=== PATIENT | male | born 1980 | race Caucasian/White ===

== ENCOUNTER 2018-10-02 14:53 | Emergency (ER) | payer OTHER, SELFPAY ==
[2018-10-02 15:03] VITALS: BP 117/76; PULSE 79; RESP 18; TEMP 37.2; O2SAT 98; BMI 24.3
--- NOTE | 2018-10-02 15:43 | PC.NURSE ---
1535 Droplet precautions initiated for strep
--- NOTE | 2018-10-02 15:47 | ED_ITS ---
HPI - URI/Sore Throat <DAFNE Bal - Last Filed: 10/02/18 16:23> General Chief Complaint: Upper Respiratory Symptoms Stated Complaint: Tonsils are swollen Time Seen by Provider: 10/02/18 15:28 Source: patient Mode of arrival: ambulatory Limitations: no limitations History of Present Illness HPI Narrative: The patient is a 37-year-old male current smoker with history of dental infection who presents with a chief complaint of a sore throat for 2 weeks. He states he had fever initially, but no longer. He states he has generalized nausea. Denies any vomiting or diarrhea. Denies abdominal pain. States he has some ear pain. Has not been taking anything consistently for the pain. He states he did take a 10 day course of amoxicillin for this sore throat. He does not know the dosage. He states he had a 2nd prescription for dental infection, so he took that. Related Data Previous Rx's Medication Instructions Recorded azithromycin See Rx Instructions .ROUTE 10/02/18 .COMPLEX #6 tab Allergies Allergy/AdvReac Type Severity Reaction Status Date / Time NSAIDS (Non-Steroidal Allergy Verified 10/02/18 15:03 Anti-Inflamma Review of Systems <DAFNE Bal - Last Filed: 10/02/18 16:23> Review of Systems GENERAL: See HPI HEENT: See HPI RESPIRATORY: Denies dyspnea, cough, wheezing, hemoptysis, sputum. CARDIOVASCULAR: Denies chest pain, palpitations, orthopnea, edema, GASTROINTESTINAL: Denies nausea, vomiting, abdominal pain, diarrhea, constipation, melena. : Denies dysuria, frequency, incontinence, hematuria, urinary retention. MUSCULOSKELETAL: denies weakness, joint pain, or bony pain SKIN: Denies rash, skin lesions, or other NEUROLOGIC: Denies weakness, headache, numbness, change in speech, confusion, seizures, incoordination. PSYCHIATRIC: No concerning psychosocial issues. 12 point review of systems is negative except for those stated above PFSH <DAFNE Bal - Last Filed: 10/02/18 16:23> Medical History (Updated 10/02/18 @ 16:21 by DAFNE Bal) Dental infection (Acute) Social History Smoking Status: Current every day smoker Social History Smoking Status: Current every day smoker Exam <DAFNE Bal - Last Filed: 10/02/18 16:23> Narrative Exam Narrative: GENERAL: This is a well-nourished, well-developed patient, lying on stretcher HEAD: Atraumatic. Normocephalic. No temporal or scalp tenderness. EYES: Pupils equal round and reactive. Extraocular motions intact. No scleral icterus. No injection or drainage. ENT: Nose without bleeding, purulent drainage or septal hematoma. Throat with erythema, without tonsillar hypertrophy or exudate. Uvula midline. Airway patent. bilateral TMs pearly willard. NECK: Trachea midline. bilateral anterior lymphadenopathy. Supple, nontender, no meningeal signs. CARDIOVASCULAR: Regular rate and rhythm without murmurs, gallops, or rubs. RESPIRATORY: Clear to auscultation. Breath sounds equal bilaterally. No wheezes, rales, or rhonchi. No cough. No increased respiratory effort. GASTROINTESTINAL: Abdomen soft, non-tender, nondistended. No hepato- splenomegaly, or palpable masses. No guarding. EXTREMITIES: No clubbing, cyanosis, or edema. No joint tenderness, effusion, or edema noted. BACK: Nontender without deformity or crepitance. No flank tenderness. NEURO: AOx3. SKIN: No rash or erythema. Initial Vital Signs Initial Vital Signs: Vital Signs Temperature 98.9 F 10/02/18 15:03 Pulse Rate 79 10/02/18 15:03 Respiratory Rate 18 10/02/18 15:03 Blood Pressure 117/76 10/02/18 15:03 Pulse Oximetry 98 10/02/18 15:03 <Shreyas Rice DO - Last Filed: 10/03/18 08:48> Initial Vital Signs Initial Vital Signs: Vital Signs Temperature 98.9 F 10/02/18 15:03 Pulse Rate 79 10/02/18 15:03 Respiratory Rate 18 10/02/18 15:03 Blood Pressure 117/76 10/02/18 15:03 Pulse Oximetry 98 10/02/18 15:03 Course <DAFNE Bal - Last Filed: 10/02/18 16:23> Vital Signs - 8 hr 10/02/18 15:03 Temperature 98.9 F Pulse Rate 79 Respiratory Rate 18 Blood Pressure 117/76 Pulse Oximetry 98 <DO Bill Cavazos Last Filed: 10/03/18 08:48> Vital Signs - 8 hr 10/02/18 15:03 Temperature 98.9 F Pulse Rate 79 Respiratory Rate 18 Blood Pressure 117/76 Pulse Oximetry 98 MDM - URI/Sore Throat <DAFNE Bal - Last Filed: 10/02/18 16:23> Lab Data Point of Care Testing Rapid Strep A Positive MDM Narrative Medical decision making narrative: The patient is a 37-year-old male who presents with a sore throat. He has strep positive. Given that he recently treated himself with an unknown dose of amoxicillin, I do not want a repeat amoxicillin. I gave him a prescription of azithromycin. Encouraged follow-up with his primary care provider. Patient is nontoxic, hemodynamically stable, and has no questions or concerns about discharge. Discussed return precautions worsening or acute concerns. <Shreyas Rice DO - Last Filed: 10/03/18 08:48> Lab Data Point of Care Testing Rapid Strep A Positive Discharge Plan Departure Patient Disposition: Home Clinical Impression: Strep throat Discharge Date/Time: 10/02/18 16:28 Interventions: ED Discharge Assessment Last Done: 10/02/18 16:28 Instructions: DI for Strep Throat Activity Restrictions/Additional Instructions: You tested positive for strep throat today. I will treat with antibiotics. In the future, do not self administer antibiotics for throat pain. please follow up with a healthcare provider see you can have testing. Please follow up with primary care provider. Please come back to emergency department for any acute concerns. Prescriptions: New azithromycin 250 mg tablet See Rx Instructions .ROUTE .COMPLEX Qty: 6 RF: 0 <Shreyas Rice DO - Last Filed: 10/03/18 08:48> Cosign ED Attending [place] Attestation: I was immediately available in the department for consultation. Documentation has been reviewed. I agree with assessment and plan.
[2018-10-02 16:28] VITALS: BP 116/75; PULSE 81; RESP 16; O2SAT 98
== END 2018-10-02 16:28 | disposition home or self-care (01) ==
PROVIDERS: Emergency Provider Nurse Practitioner Family
DX: J02.0 Streptococcal pharyngitis (principal)
CPT/HCPCS: 87880; 99282; 99283

== ENCOUNTER 2018-10-29 09:47 | Emergency (ER) | payer OTHER, SELFPAY ==
[2018-10-29 09:52] VITALS: BP 133/90; PULSE 76; RESP 16; TEMP 36.4; O2SAT 100; BMI 22.1
--- NOTE | 2018-10-29 10:20 | ED.UPPEXIN ---
HPI - Extremity Injury (Upper) General Chief Complaint: Extremity Injury, Upper Stated Complaint: Right arm is swollen. Time Seen by Provider: 10/29/18 10:07 Source: patient Mode of arrival: ambulatory Limitations: no limitations History of Present Illness HPI narrative: This is a 37-year-old male comes to the emergency department with complaint of pain and discomfort in his right upper extremity. He states in the shoulder kind of elbow region. He states about 2 weeks ago he was working on a car his arm was but through the wheel well and the car fell off the [place] and fell on to his arm on each side of his elbow. He states the tire was flat so it sort of landed on his arm. He states he has had pain since. Was sort of improving but has been getting worse again. He also noticed some bumps on his fingers and swelling of the fingers on the right hand. Patient has not had any fevers. He has not have any numbness or tingling. Cold does make his hand much more pain he does help. He states that movement is uncomfortable. Patient does not have similar symptoms on the other side or in his other extremities. Patient does work on a farm, he does a significant amount of manual labor. He states he also had a dog bite about 2 days ago on his right leg. He states his tetanus is up-to-date within the last year. He denies any other current medical problems. He denies surgeries except for remote surgery on his right hand for a fractured metacarpal. Patient does smoke tobacco no current alcohol. States that he stopped using IV drugs about 6 months ago. He does smoke marijuana regularly. He is attempting to get set up with the [facility] for primary care. Related Data Previous Rx's Medication Instructions Recorded azithromycin See Rx Instructions .ROUTE 10/02/18 .COMPLEX #6 tab amoxicillin-pot clavulanate 1 tab PO Q12H #14 tab 10/29/18 [Augmentin] prednisone See Rx Instructions .ROUTE 10/29/18 .COMPLEX #7 tab Allergies Allergy/AdvReac Type Severity Reaction Status Date / Time NSAIDS (Non-Steroidal Allergy Verified 10/29/18 09:52 Anti-Inflamma Review of Systems Review of Systems ROS Unobtainable: All systems reviewed & are unremarkable except as noted in HPI and below Constitutional Denies chills, Denies fever(s) and Denies weakness Cardiovascular Denies chest pain and Denies dyspnea Respiratory Denies dyspnea Gastrointestinal Gastrointestinal: Denies change in bowel habits, Denies diarrhea, Denies nausea and Denies vomiting Musculoskeletal Reports as per HPI, Reports back pain (Chronically), Reports arthralgias (Right shoulder, elbow and hand), Reports joint swelling (Finger tips), Reports limited range of motion (And hand 2nd to pain), Denies muscle weakness, Denies numbness, Reports radiating pain into limb, Reports stiffness and Denies tingling Integumentary/Breasts Reports erythema, Denies unusual bruising and Reports wounds (Right leg, dog bite) Neurologic Denies focal weakness, Denies numbness, Denies tingling, Denies paresthesias and Denies weakness [facility] Medical History Dental infection (Acute) Social History Smoking Status: Current every day smoker Social History (Updated 10/29/18 @ 10:24 by Laura Ricardo DO) Smoking Status: Current every day smoker substance use type: former substance user, marijuana and IV drugs Exam Narrative Exam Narrative: GEN: well nourished, well appearing male, alert and oriented x 3, patient appears to be in mild distress. HEENT: Atraumatic, pupils are equal round reactive to light, extraocular movements are intact. HEART: Regular rate and rhythm without murmur, clicks, rubs. Pulses are equal in upper and lower extremities LUNGS:Lungs clear to auscultation, no wheezes, rales, crackles, chest moves symmetrically, no tachypnea or accessory muscle use. ABD:bowel sounds normal, soft, non-tender, no guarding, rebound, rigidity, no masses noted, no hepatosplenomegaly MSCL: Patient does not have any significant bony tenderness of the shoulder or elbow. Tenderness is localized more to the and the distal fingers. Patient does have a little bit of swelling in comparison to the left. He does appear to have prominent distal joints on all 5 fingers they are slightly tender to touch and slightly erythematous. The nails themselves are intact. Patient's hands are a little bit dirty. He does not have any bony tenderness of the proximal joints. He has normal sensation, normal range of motion, 2+ pulses in less than 2 seconds cap refill in all 5 fingers, no muscle atrophy, muscles strength 5/5 upper and lower extremities, full range of motion, normal gait NEURO:CN 2-12 intact, sensation normal sKIN: Patient also has what appears to be a bite on his right thigh just above the knee. There is no erythema, no drainage or signs of infection. Patient does have a little bit of bruising. Initial Vital Signs Initial Vital Signs: Vital Signs Temperature 97.5 F L 10/29/18 09:52 Pulse Rate 76 10/29/18 09:52 Respiratory Rate 16 10/29/18 09:52 Blood Pressure 133/90 10/29/18 09:52 Pulse Oximetry 100 10/29/18 09:52 Course Orders Ordered: ED Orders 10/29/18 10:19 US periph venous up extrem rt Stat XR shoulder RT min 2V Stat Vital Signs - 8 hr 10/29/18 09:52 Temperature 97.5 F L Pulse Rate 76 Respiratory Rate 16 Blood Pressure 133/90 Pulse Oximetry 100 MDM - Extremity Injury (Upper) Imaging Data Right shoulder x-ray: Radiologist's impression: [place] [address] XRay Report Signed Patient: Stanton Larson KMR#: [id number] : 1980Acct:[id number] Age/Sex: 37 / MDate of Service: 10/29/18 Loc: ED Accession Number: [id number] Procedure: XR shoulder RT min 2V Ordering Provider: Laura Ricardo D.O. PROCEDURE: XR SHOULDER RT MIN 2V INDICATIONS: car fell on each side of elbow/pain, 2 wks ago TECHNIQUE: 3 views of the shoulder were acquired. COMPARISON: None. FINDINGS: Bones: No fractures. There is a 3 mm superior subluxation of the distal clavicle at the right a.c. joint although the joint space is normal without widening. No suspicious bony lesions. Visualized ribs appear intact. Soft tissues: No suspicious soft tissue calcifications. IMPRESSION: 3 mm superior subluxation distal clavicle at the right a.c. joint, suspicious for a.c. joint sprain. If there is focal pain/tenderness, x-ray of the a.c. joints with and without weightbearing is suggested for followup. Dictated by: Gudelia Spring M.D. on 10/29/2018 at 11:33 Approved by: Gudelia Spring M.D. on 10/29/2018 at 11:36 DVT right upper extremity ultrasound: Radiologist's impression: [address] [address] Ultrasound Report Signed Patient: Stanton Larson KMR#: [id number] : 1980Acct:[id number] Age/Sex: 37 / MDate of Service: 10/29/18 Loc: ED Accession Number: [id number] Procedure: US periph venous up extrem rt Ordering Provider: Laura Ricardo D.O. PROCEDURE: US PERIPH VENOUS UP EXTREM RT INDICATIONS: POST TRAUMA EDEMA TECHNIQUE: Real-time imaging, as well as color and pulse Doppler interrogation, was performed of the right upper extremity deep veins from the inferior neck to the antecubital fossa. COMPARISON: None. FINDINGS: The internal jugular vein, visualized portions of the subclavian vein, axillary, and brachial veins are free of intraluminal thrombus. Where physically possible, the veins are normally compressible. Color and pulse Doppler demonstrate normal intraluminal flow, with expected phasicity and pulsatility. Additional scanning of the cephalic and basilic veins of the superficial system demonstrate normal compressibility, without thrombus. IMPRESSION: No deep venous thrombosis in the right upper extremity. Dictated by: Shaniqua Kovacs M.D. on 10/29/2018 at 11:36 Approved by: Shaniqua Kovacs M.D. on 10/29/2018 at 11:36 MDM Narrative Medical decision making narrative: Patient appears have an AC joint separation/strain. Patient's ultrasound is negative. Patient does have some swelling of his fingers and the joints of his fingers all 5. He does not have the other hand. We discussed that he probably would warrant some additional workup with his primary for autoimmune causes if this does not improve. A did not want to take steroids but we discussed doing a very short course. Was given a prescription for Augmentin secondary to the dog bite although patient states it has been looking well and is 3-day-old. Discharge Plan Departure Patient Disposition: Home Clinical Impression: Sprain of acromioclavicular joint Qualifiers: Encounter type: initial encounter Laterality: right Qualified Code(s): S43.51XA - Sprain of right acromioclavicular joint, initial encounter Upper extremity pain Qualifiers: Laterality: right Qualified Code(s): M79.601 - Pain in right arm Animal bite of thigh Qualifiers: Encounter type: initial encounter Laterality: right Qualified Code(s): S71.151A - Open bite, right thigh, initial encounter Discharge Date/Time: 10/29/18 12:04 Interventions: ED Discharge Assessment Last Done: 10/29/18 12:32 Instructions: Shoulder Sprain Activity Restrictions/Additional Instructions: Follow-up with primary care in the next week for recheck. Call for an appointment. Also included is referral for orthopedic surgery if you prefer. Avoid any pulling or yanking on your right shoulder/arm. Take antibiotics until completely gone. You may use warm compresses as needed for pain. You may take Tylenol up to a 1000 mg every 8 hours as needed for pain. Take steroids once daily, stop if you are having any bothersome side effects. Return to the emergency department for fevers greater than 100.4 F, rapidly worsening symptoms, worsening swelling of your extremities, new weakness, numbness common inability use your arms or legs or other new or concerning changes. Prescriptions: New amoxicillin-pot clavulanate [Augmentin] 875-125 mg tablet 1 tab PO Q12H Qty: 14 RF: 0 prednisone 10 mg tablet See Rx Instructions .ROUTE .COMPLEX Qty: 7 RF: 0 No Action azithromycin 250 mg tablet See Rx Instructions .ROUTE .COMPLEX Qty: 6 RF: 0 Referrals: Kenneth Nguyen MD [Physician] -
--- NOTE | 2018-10-29 10:26 | PC.NURSE ---
pt reports increased pain and swelling to right hand. initially noticed swelling to hand and finger tips 6 months ago. about 2 weeks ago had object land on forarm, now having increaseing pain
--- NOTE | 2018-10-29 10:28 | ED_ITS ---
HPI - Extremity Injury (Upper) General Chief Complaint: Extremity Injury, Upper Stated Complaint: Right arm is swollen. Time Seen by Provider: 10/29/18 10:07 Source: patient Mode of arrival: ambulatory Limitations: no limitations History of Present Illness HPI narrative: This is a 37-year-old male comes to the emergency department with complaint of pain and discomfort in his right upper extremity. He states in the shoulder kind of elbow region. He states about 2 weeks ago he was working on a car his arm was but through the wheel well and the car fell off the [place] and fell on to his arm on each side of his elbow. He states the tire was flat so it sort of landed on his arm. He states he has had pain since. Was sort of improving but has been getting worse again. He also noticed some bumps on his fingers and swelling of the fingers on the right hand. Patient has not had any fevers. He has not have any numbness or tingling. Cold does make his hand much more pain he does help. He states that movement is uncomfortable. Patient does not have similar symptoms on the other side or in his other extremities. Patient does work on a farm, he does a significant amount of manual labor. He states he also had a dog bite about 2 days ago on his right leg. He states his tetanus is up-to-date within the last year. He denies any other current medical problems. He denies surgeries except for remote surgery on his right hand for a fractured metacarpal. Patient does smoke tobacco no current alcohol. States that he stopped using IV drugs about 6 months ago. He does smoke marijuana regularly. He is attempting to get set up with the [place] for primary care. Related Data Previous Rx's Medication Instructions Recorded azithromycin See Rx Instructions .ROUTE 10/02/18 .COMPLEX #6 tab amoxicillin-pot clavulanate 1 tab PO Q12H #14 tab 10/29/18 [Augmentin] prednisone See Rx Instructions .ROUTE 10/29/18 .COMPLEX #7 tab Allergies Allergy/AdvReac Type Severity Reaction Status Date / Time NSAIDS (Non-Steroidal Allergy Verified 10/29/18 09:52 Anti-Inflamma Review of Systems Review of Systems ROS Unobtainable: All systems reviewed & are unremarkable except as noted in HPI and below Constitutional Denies chills, Denies fever(s) and Denies weakness Cardiovascular Denies chest pain and Denies dyspnea Respiratory Denies dyspnea Gastrointestinal Gastrointestinal: Denies change in bowel habits, Denies diarrhea, Denies nausea and Denies vomiting Musculoskeletal Reports as per HPI, Reports back pain (Chronically), Reports arthralgias (Right shoulder, elbow and hand), Reports joint swelling (Finger tips), Reports limited range of motion (And hand 2nd to pain), Denies muscle weakness, Denies numbness, Reports radiating pain into limb, Reports stiffness and Denies ti ngling Integumentary/Breasts Reports erythema, Denies unusual bruising and Reports wounds (Right leg, dog bite) Neurologic Denies focal weakness, Denies numbness, Denies tingling, Denies paresthesias and Denies weakness [facility] Medical History Dental infection (Acute) Social History Smoking Status: Current every day smoker Social History (Updated 10/29/18 @ 10:24 by Laura Ricardo DO) Smoking Status: Current every day smoker substance use type: former substance user, marijuana and IV drugs Exam Narrative Exam Narrative: GEN: well nourished, well appearing male, alert and oriented x 3, patient appears to be in mild distress. HEENT: Atraumatic, pupils are equal round reactive to light, extraocular movements are intact. HEART: Regular rate and rhythm without murmur, clicks, rubs. Pulses are equal in upper and lower extremities LUNGS:Lungs clear to auscultation, no wheezes, rales, crackles, chest moves symmetrically, no tachypnea or accessory muscle use. ABD:bowel sounds normal, soft, non-tender, no guarding, rebound, rigidity, no masses noted, no hepatosplenomegaly MSCL: Patient does not have any significant bony tenderness of the shoulder or elbow. Tenderness is localized more to the and the distal fingers. Patient does have a little bit of swelling in comparison to the left. He does appear to have prominent distal joints on all 5 fingers they are slightly tender to touch and slightly erythematous. The nails themselves are intact. Patient's hands are a little bit dirty. He does not have any bony tenderness of the proximal joints. He has normal sensation, normal range of motion, 2+ pulses in less than 2 seconds cap refill in all 5 fingers, no muscle atrophy, muscles strength 5/5 upper and lower extremities, full range of motion, normal gait NEURO:CN 2-12 intact, sensation normal sKIN: Patient also has what appears to be a bite on his right thigh just above the knee. There is no erythema, no drainage or signs of infection. Patient does have a little bit of bruising. Initial Vital Signs Initial Vital Signs: Vital Signs Temperature 97.5 F L 10/29/18 09:52 Pulse Rate 76 10/29/18 09:52 Respiratory Rate 16 10/29/18 09:52 Blood Pressure 133/90 10/29/18 09:52 Pulse Oximetry 100 10/29/18 09:52 Course Orders Ordered: ED Orders 10/29/18 10:19 US periph venous up extrem rt Stat XR shoulder RT min 2V Stat Vital Signs - 8 hr 10/29/18 09:52 Temperature 97.5 F L Pulse Rate 76 Respiratory Rate 16 Blood Pressure 133/90 Pulse Oximetry 100 MDM - Extremity Injury (Upper) Imaging Data Right shoulder x-ray: Radiologist's impression: [place] [address] XRay Report Signed Patient: Stanton Larson KMR#: [id number] : 1980Acct:[id number] Age/Sex: 37 / MDate of Service: 10/29/18 Loc: ED Accession Number: [id number] Procedure: XR shoulder RT min 2V Ordering Provider: Laura Ricardo D.O. PROCEDURE: XR SHOULDER RT MIN 2V INDICATIONS: car fell on each side of elbow/pain, 2 wks ago TECHNIQUE: 3 views of the shoulder were acquired. COMPARISON: None. FINDINGS: Bones: No fractures. There is a 3 mm superior subluxation of the distal clavicle at the right a.c. joint although the joint space is normal without widening. No suspicious bony lesions. Visualized ribs appear intact. Soft tissues: No suspicious soft tissue calcifications. IMPRESSION: 3 mm superior subluxation distal clavicle at the right a.c. joint, suspicious for a.c. joint sprain. If there is focal pain/tenderness, x-ray of the a.c. joints with and without weightbearing is suggested for followup. Dictated by: Gudelia Spring M.D. on 10/29/2018 at 11:33 Approved by: Gudelia Spring M.D. on 10/29/2018 at 11:36 DVT right upper extremity ultrasound: Radiologist's impression: [address] [address] Ultrasound Report Signed Patient: Stanton Larson KMR#: [id number] : 1980Acct:[id number] Age/Sex: 37 / MDate of Service: 10/29/18 Loc: ED Accession Number: [id number] Procedure: US periph venous up extrem rt Ordering Provider: Laura Ricardo D.O. PROCEDURE: US PERIPH VENOUS UP EXTREM RT INDICATIONS: POST TRAUMA EDEMA TECHNIQUE: Real-time imaging, as well as color and pulse Doppler interrogation, was performed of the right upper extremity deep veins from the inferior neck to the antecubital fossa. COMPARISON: None. FINDINGS: The internal jugular vein, visualized portions of the subclavian vein, axillary, and brachial veins are free of intraluminal thrombus. Where physically possible, the veins are normally compressible. Color and pulse Doppler demonstrate normal intraluminal flow, with expected phasicity and pulsatility. Additional scanning of the cephalic and basilic veins of the superficial system demonstrate normal compressibility, without thrombus. IMPRESSION: No deep venous thrombosis in the right upper extremity. Dictated by: Shaniqua Kovacs M.D. on 10/29/2018 at 11:36 Approved by: Shaniqua Kovacs M.D. on 10/29/2018 at 11:36 MDM Narrative Medical decision making narrative: Patient appears have an AC joint separation/strain. Patient's ultrasound is negative. Patient does have some swelling of his fingers and the joints of his fingers all 5. He does not have the other hand. We discussed that he probably would warrant some additional workup with his primary for autoimmune causes if this does not improve. A did not want to take steroids but we discussed doing a very short course. Was given a prescription for Augmentin secondary to the dog bite although patient states it has been looking well and is 3-day-old. Discharge Plan Departure Patient Disposition: Home Clinical Impression: Sprain of acromioclavicular joint Qualifiers: Encounter type: initial encounter Laterality: right Qualified Code(s): S43.51XA - Sprain of right acromioclavicular joint, initial encounter Upper extremity pain Qualifiers: Laterality: right Qualified Code(s): M79.601 - Pain in right arm Animal bite of thigh Qualifiers: Encounter type: initial encounter Laterality: right Qualified Code(s): S71.151A - Open bite, right thigh, initial encounter Discharge Date/Time: 10/29/18 12:04 Interventions: ED Discharge Assessment Last Done: 10/29/18 12:32 Instructions: Shoulder Sprain Activity Restrictions/Additional Instructions: Follow-up with primary care in the next week for recheck. Call for an appointment. Also included is referral for orthopedic surgery if you prefer. Avoid any pulling or yanking on your right shoulder/arm. Take antibiotics until completely gone. You may use warm compresses as needed for pain. You may take Tylenol up to a 1000 mg every 8 hours as needed for pain. Take steroids once daily, stop if you are having any bothersome side effects. Return to the emergency department for fevers greater than 100.4 F, rapidly worsening symptoms, worsening swelling of your extremities, new weakness, numbness common inability use your arms or legs or other new or concerning changes. Prescriptions: New amoxicillin-pot clavulanate [Augmentin] 875-125 mg tablet 1 tab PO Q12H Qty: 14 RF: 0 prednisone 10 mg tablet See Rx Instructions .ROUTE .COMPLEX Qty: 7 RF: 0 No Action azithromycin 250 mg tablet See Rx Instructions .ROUTE .COMPLEX Qty: 6 RF: 0 Referrals: Kenneth Nguyen MD [Physician] -
--- NOTE | 2018-10-29 10:41 | PC.NURSE ---
reports right arm injury 2 weeks ago, changing tires, lina fell, vehicle fell unto right upper/forearm now with worsening pain right arm and with swelling. also with right shoulder pain. treated with tiger balm and tylenol.
== END 2018-10-29 12:04 | disposition home or self-care (01) ==
PROVIDERS: Emergency Provider Emergency Medicine
DX: S43.51XA Sprain of right acromioclavicular joint, initial encounter (principal); S71.151A Open bite, right thigh, initial encounter; W23.0XXA Caught, crushed, jammed, or pinched between moving objects, initial encounter
CPT/HCPCS: 73030; 93971; 99282; 99283

== ENCOUNTER 2020-09-24 20:52 | Emergency (ER) | payer OTHER, SELFPAY ==
[2020-09-24 20:56] VITALS: BP 131/77; PULSE 80; RESP 17; TEMP 37; O2SAT 96; BMI 22.1
--- NOTE | 2020-09-24 21:35 | DI.RAD.S_ITS ---
PROCEDURE: XR CHEST 2V INDICATIONS: short of breath TECHNIQUE: 2 views of the chest were acquired. COMPARISON: [facility], [facility], XR CHEST 1 VIEW, 12/05/2018, 21:24. FINDINGS: Surgical changes and devices: None. Lungs and pleura: Lungs are clear. No pleural effusions or pneumothorax. Mediastinum: Mediastinal contours are normal. Heart size is normal. Bones and chest wall: No suspicious bony abnormalities. Soft tissues appear unremarkable. IMPRESSION: No acute cardiopulmonary disease. Dictated by: Gudelia Spring M.D. on 09/24/2020 at 22:06 Approved by: Gudelia Spring M.D. on 09/24/2020 at 22:06
[2020-09-24] MEDS: predniSONE 20 MG TABLET 60 MG PO (21:40)
--- NOTE | 2020-09-24 21:43 | ED_ITS ---
HPI - SOB/Dyspnea General Chief Complaint: Shortness of Breath/Dyspnea Stated Complaint: SOB Time Seen by Provider: 09/24/20 21:06 Source: patient Mode of arrival: Ambulatory Limitations: no limitations History of Present Illness HPI Narrative: Patient is a 39-year-old male who states he is having a burning sensation in his lungs along with in the needles on his skin. 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 He denies any cough is having some shortness of breath. He does smoke cigarettes and marijuana. He denies any fever or chills. He really just feels burning sensation in his chest. Related Data Previous Rx's Medication Instructions Recorded azithromycin See Rx Instructions .ROUTE 10/02/18 .COMPLEX #6 tab amoxicillin-pot clavulanate 1 tab PO Q12H #14 tab 10/29/18 [Augmentin] prednisone See Rx Instructions .ROUTE 10/29/18 .COMPLEX #7 tab prednisone 40 mg PO DAILY #6 tab 09/24/20 Allergies Allergy/AdvReac Type Severity Reaction Status Date / Time NSAIDS (Non-Steroidal Allergy Verified 10/29/18 09:52 Anti-Inflamma Review of Systems Review of Systems Narrative: GENERAL: Denies chills, fatigue, malaise, fever, sweats, travel HEENT: Denies sinus pain, ear pain, sore throat, difficulty swallowing, neck pain RESPIRATORY: See HPI CARDIOVASCULAR: Denies chest pain, palpitations, orthopnea, edema GASTROINTESTINAL: Denies nausea, vomiting, abdominal pain, diarrhea, constipation, melena. : Denies dysuria, frequency, incontinence, hematuria, urinary retention, flank pain. MUSCULOSKELETAL: Denies weakness, joint pain, or bony pain SKIN: No rash, no erythema, no pruritus NEUROLOGIC: Denies weakness, dizziness, headache, numbness, change in speech, confusion PSYCHIATRIC: No concerning psychosocial issues. 12 point review of systems is negative except for those stated above and HPI Patient History Medical History (Updated 09/24/20 @ 22:07 by Adina Hernandez DO) Dental infection Social History (Updated 10/29/18 @ 10:24 by Laura Ricardo DO) Smoking Status: Current every day smoker substance use type: former substance user, marijuana and IV drugs Smoking Status: Current every day smoker Substance Use Type: does not use and marijuana Exam Initial Vital Signs Initial Vital Signs: Vital Signs Temperature 98.6 F 09/24/20 20:56 Pulse Rate 80 09/24/20 20:56 Respiratory Rate 17 09/24/20 20:56 Blood Pressure 131/77 09/24/20 20:56 Pulse Oximetry 96 09/24/20 20:56 GENERAL: Alert thin 39-year-old male and in no acute distress. HEENT: Head atraumatic,EOMI, pupils reactive, face symmetric, moist mucous membranes CARDIOVASCULAR: Regular rate and rhythm without murmurs, rubs or gallops. RESPIRATORY: Breath sounds equal bilaterally, no wheezes rales or rhonchi. ABDOMEN: Soft, nontender. Normoactive bowel sounds all 4 quadrants. No guarding or rebound. EXTREMITIES: Normal range of motion, no clubbing or edema. Neurovascularly intact NEUROLOGICAL: Alert and oriented x4.Normal gait and speech. SKIN: Warm, dry, no laceration, no petechiae, no rashes or lesions. Course Orders Ordered: ED Orders 09/24/20 21:35 XR chest 2V Stat Discontinued Medications Diphenhydramine HCl (Diphenhydramine 25 Mg Tablet) 25 mg PO NOW ONE Stop: 09/24/20 22:10 Last Admin: 09/24/20 22:12 Dose: 25 mg Documented by: LYN Prednisone (Prednisone 20 Mg Tablet) 60 mg PO NOW ONE Stop: 09/24/20 21:36 Last Admin: 09/24/20 21:40 Dose: 60 mg Documented by: LYN Vital Signs Vital signs: Vital Signs - 8 hr 09/24/20 20:56 09/24/20 22:10 Temperature 98.6 F Pulse Rate 80 74 Respiratory Rate 17 18 Blood Pressure 131/77 102/63 Pulse Oximetry 96 96 MDM - SOB/Dyspnea Imaging Data Chest x-ray: My Impression: PROCEDURE: XR CHEST 2V INDICATIONS: short of breath TECHNIQUE: 2 views of the chest were acquired. COMPARISON: [facility], , XR CHEST 1 VIEW, 12/05/2018, 21:24. FINDINGS: Surgical changes and devices: None. Lungs and pleura: Lungs are clear. No pleural effusions or pneumothorax. Mediastinum: Mediastinal contours are normal. Heart size is normal. Bones and chest wall: No suspicious bony abnormalities. Soft tissues appear unremarkable. IMPRESSION: No acute cardiopulmonary disease. Dictated by: Gudelia Spring M.D. on 09/24/2020 at 22:06 MDM Narrative Medical decision making narrative: Patient has no conversational dyspnea lungs are clear. He has no rash hives or erythema. Just feeling a burning sensation. Possible chemical pneumonitis. He is given a dose of prednisone x-ray is clear. At this time no further testing indicated Discharge Plan Departure Patient Disposition: Home Clinical Impression: Allergic reaction Qualifiers: Encounter type: initial encounter Qualified Code(s): T78.40XA - Allergy, unspecified, initial encounter Instructions: DI for General Allergic Reactions Activity Restrictions/Additional Instructions: *You have been diagnosed with allergic reaction *What to do: Try to avoid smoke and smoking. *Continue to take medications as directed Prednisone 40 mg once a day for the next 3 days Benadryl 25-50 mg every 6 hours only if needed for itching *Follow up with your primary care provider in 2-3 days *Return to ER if you should have increasing shortness of breath, lip swelling, tongue swelling or any new, worsening or concerning symptoms Prescriptions: New prednisone 20 mg tablet 40 mg PO DAILY Qty: 6 RF: 0 No Action azithromycin 250 mg tablet See Rx Instructions .ROUTE .COMPLEX Qty: 6 RF: 0 amoxicillin-pot clavulanate [Augmentin] 875-125 mg tablet 1 tab PO Q12H Qty: 14 RF: 0 prednisone 10 mg tablet See Rx Instructions .ROUTE .COMPLEX Qty: 7 RF: 0 Referrals: [facility] [Outside]
[2020-09-24 22:10] VITALS: BP 102/63; PULSE 74; RESP 18; O2SAT 96
[2020-09-24] MEDS: diphenhydrAMINE 25 MG TABLET PO (22:12)
== END 2020-09-24 22:15 | disposition home or self-care (01) ==
PROVIDERS: Emergency Provider Emergency Medicine
DX: R06.02 Shortness of breath (principal); T78.40XA Allergy, unspecified, initial encounter
CPT/HCPCS: 71046; 99283